=== PATIENT | male | born 1975 | race Caucasian/White ===

== ENCOUNTER 2024-06-30 14:47 | Emergency (ER) | payer OTHER ==
[2024-06-30 15:30] VITALS: TEMP 97.7; O2SAT 97
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
[2024-06-30] MEDS ORDERED: TORAdol 30 mg Injection ONE (17:16)
[2024-06-30] MEDS: TORAdol 30 mg Injection IM ONE (17:18)
[2024-06-30] MEDS: Zanaflex 4 MG PO ONE (17:22)
[2024-06-30 17:24] LABS: Absolute Neutrophil Ct (ANC) 13.47 x10^3/uL (1.78-5.38); BASOPHIL % 0.7 % (0.2-1.2); Basophil (Absolute #) 0.12 x10^3/uL (0.01-0.08); Eosinophil % 0.1 % (0.8-7.0); Eosinophil (Absolute #) 0.01 x10^3/uL (0.04-0.54); Hematocrit 47.2 % (40.1-51.0); Hemoglobin 15.7 g/dL (13.7-17.5); IMMATURE GRAN # 0.08 x10^3u/L (0.001-0.031); IMMATURE GRAN % 0.5 % (0.001-0.429); Lymphocyte (Absolute #) 2.25 x10^3/uL (1.32-3.57); Lymphocytes % 13.3 % (21.8-53.1); Mean Cell Volume 93.8 fL (79.0-92.2); Mean Corpuscular Hemoglobin 31.2 pg (25.7-32.2); Mean Corpuscular Hgb Concent. 33.3 g/dL (32.3-36.5); Mean Platelet Volume 9.9 fL (9.4-12.4); Monocyte (Absolute #) 1.02 x10^3/uL (0.30-0.82); Neutrophil % 79.4 % (34.0-67.9); Platelet Count 266 x10^3/uL (163-337); Red Blood Count 5.03 x10^6/uL (4.63-6.08); Red Cell Distribution Width 13.2 % (11.6-14.4)
[2024-06-30 17:42] LABS: ALBUMIN 4.9 g/dL (3.5-5.0); ANION GAP 16.8 MEQ/L (5-15); BILIRUBIN,TOTAL 0.6 mg/dL (0.2-1.3); Calcium 10.3 mg/dL (8.4-10.2); Creatinine 1 0.86 mg/dL (0.66-1.25); EST GLOMERULAR FILTRATION RATE 106.1 ML/MIN; Potassium 4.6 mmol/L (3.5-5.1); Total Protein 8.1 g/dL (6.3-8.2)
[2024-06-30 19:38] LABS: Appearance Clear (Clear); Bacteria None Seen /HPF (None Seen); Bilirubin Negative (Negative); Blood Negative (Negative); Epithelial Cells None Seen /HPF (None Seen); Glucose, Urine Negative (Negative); Hyaline Casts NONE SEEN /LPF (0-2); Ketones Negative (Negative); Leukocyte Esterase Negative (Negative); Nitrite Negative (Negative); Protein,Urine Dip Negative (Negative); RBC 0-2 /HPF (0-5); Specific Gravity 1.015 (1.005-1.030); Urobilinogen 0.2 mg/dL (0.2); WBC 0-2 /HPF (0-5)
[2024-06-30] MEDS ORDERED: Hydromorphone 1 mg/ml Injection ONE (20:55)
[2024-06-30] MEDS: Hydromorphone 1 mg/ml Injection IM ONE (20:58)
[2024-06-30 21:05] VITALS: BP 148/85; PULSE 79; RESP 18
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
== END 2024-06-30 21:15 | disposition home or self-care (01) ==
LOC: ED 14:47
DX: S22.42XA Multiple fractures of ribs, left side, initial encounter for closed fracture (principal); V89.2XXA Person injured in unspecified motor-vehicle accident, traffic, initial encounter; R10.9 Unspecified abdominal pain; Z79.899 Other long term (current) drug therapy; Z72.0 Tobacco use
CPT/HCPCS: 36415; 71250; 74176; 76376; 80053; 81001; 82150; 83605; 83690; 84484; 85025; 93005; 96372; 99284; 99285; J1171; J1885; A9270-GY